=== PATIENT | female | born 1955 ===

== ENCOUNTER → 2022-03-16 06:58 | Outpatient (CLI) | payer MEDICARE, OTHER, SELFPAY ==
--- NOTE | ~2022-03-16 | MR_ITS ---
EXAMINATION: MR knee LT wo con DATE: 03/16/2022 07:45 INDICATION: Left knee pain TECHNIQUE: Magnetic resonance imaging (MRI) of the left knee was performed without intravenous contra st. Sequences included coronal PD-weighted FSE, coronal PD-weighted FS FSE, sagittal T2-weighted FSE , sagittal PD-weighted FS FSE and axial PD weighted fat saturated FSE. COMPARISON: None. FINDINGS: Medial compartment: Full-thickness radial tear at the posterior horn of the medial meniscus. There is extensive deep los dral ulceration involving the majority of the weightbearing medial femoral condyle. This relatively s pares the posterior most aspect of the weightbearing femoral condyle where there is deep fissuring an d a tiny central subchondral osteophyte. Generally less severe partial thickness cartilage loss at th e medial tibial plateau with small band of deeper fall/near full-thickness chondral ulceration extend ing across the central aspect of the medial tibial plateau. Mild subarticular edema-like signal perry e along the posterior medial margin of the medial tibial plateau and at the posterior weightbearing m edial femoral condyle. There is more prominent subarticular edema at anterior weightbearing medial fe moral condyle surrounding a small subarticular low signal intensity fracture line which could be due to either discrete trauma or minimal likely stress fracture related to altered weight distribution re sulting from the meniscal tear. Lateral compartment: Lateral meniscus is normal. There is deep chondral fissuring at the anterior to central weightbearing lateral femoral condyle. Deep chondral ulceration along the medial side of the lateral tibial platea u. No degenerative subchondral changes. Patellofemoral compartment: Extensive deep chondral ulceration with scattered reticular to the articular cortex and a few tiny fo ci of subarticular edema-like signal change along much of the patella and cephalad aspect of the medi al and lateral trochlea. Ligaments and tendons: Anterior and posterior cruciate ligaments are normal. There is increased fluid signal along the deep and superficial margin of the medial collateral ligament. Small thin plane of fluid signal intensity extending along a longitudinal split tear between the deep and superficial fibers of the proximal ten don. The fibular collateral ligament complex is normal. The extensor mechanism is normal. The visuali zed medial and lateral hamstring tendons as well as the iliotibial band are normal. Fluid: Mild scattered synovitis at the periphery of a small knee joint effusion. There is also some likely r eactive edema in the surrounding soft tissues. Small ganglion cysts are seen at the margins of the po sterior recess along the medial and lateral femoral condyles. No loose osteochondral bodies identifie d. Osseous/other: Normal marrow signal aside from the previous noted edema surrounding the subarticular fracture at the medial femoral condyle and the foci of subarticular edema-like signal change. No no other fractures or pathologic marrow replacing process. Small to moderate size marginal osteophytes in all 3 compartm ents. IMPRESSION: 1. Full-thickness radial tear at the posterior horn of the medial meniscus. 2. Nondisplaced subarticular fracture line underlying a small portion of the medial anterior weightbe aring medial femoral condyle which could be due to either a discrete injury or more likely stress fra cture related to altered weight distribution resulting from the meniscal tear. 3. 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 4. Small longitudinal split tear between the deeper and
== END ==
PROVIDERS: PCP Internal Medicine
DX: M17.12 Unilateral primary osteoarthritis, left knee (principal); S83.242A Other tear of medial meniscus, current injury, left knee, initial encounter; X58.XXXA Exposure to other specified factors, initial encounter
CPT/HCPCS: 73721